=== PATIENT | female | born 1960 | race African-American/Black ===

== ENCOUNTER 2022-07-11 07:25 | Day surgery (SDC) | payer OTHER ==
[2022-07-09 14:27] VITALS: BMI 35.4
[2022-07-11] MEDS ORDERED: PROPOFOL 120 ML ONE (07:39)
[2022-07-11] MEDS ORDERED: LIDOCAINE HCL/PF 2% SDV 5ML VIAL ONE (07:39)
[2022-07-11 07:46] VITALS: RESP 18
[2022-07-11 08:53] VITALS: TEMP 97.4
[2022-07-11 09:05] VITALS: BP 107/63; PULSE 94
== END 2022-07-11 09:18 | disposition home or self-care (01) ==
LOC: FASU-ENDO 07:25
PROVIDERS: ATTEND Internal Medicine Gastroenterology
PROC: 0DB98ZX Excision of Duodenum, Via Natural or Artificial Opening Endoscopic, Diagnostic (ICD-10-PCS; 2022-07-11)
PROC: 0DB68ZX Excision of Stomach, Via Natural or Artificial Opening Endoscopic, Diagnostic (ICD-10-PCS; 2022-07-11)
PROC: 0DJD8ZZ Inspection of Lower Intestinal Tract, Via Natural or Artificial Opening Endoscopic (ICD-10-PCS; principal; 2022-07-11 08:18)
DX: Z12.11 Encounter for screening for malignant neoplasm of colon (principal); K57.30 Diverticulosis of large intestine without perforation or abscess without bleeding; K29.50 Unspecified chronic gastritis without bleeding; K44.9 Diaphragmatic hernia without obstruction or gangrene; R12 Heartburn
CPT/HCPCS: 43239; G0121; 82962; 88305-TC; 88342-TC